=== PATIENT | male | born 1980 | race Hispanic/Latino ===

== ENCOUNTER 2017-10-17 22:03 | Emergency (ER) | payer BC ==
[~2017-10-17] VITALS: Ht 175.3 cm; Wt 108.0 kg
--- OUTSIDE RECORDS SUMMARY | 2017-10-17 22:05 | XMS REPORT ---
Author Author [facility] Address Unknown Phone Unavailable Care Team Providers Care Executive Pilot Name Role Phone YO BUSTILLOS Unavailable Unavailable Problems This patient has no known problems. Allergies, Adverse Reactions, Alerts This patient has no known allergies or adverse reactions. Medications This patient has no known medications. Encounters Start Date/Time End Date/Time Encounter Type Admission Type Attending Clinicians Care Facility Care Department Encounter ID [id number] 20:00:00 2016-11-19 23:59:00 Outpatient [facility] [id number]
== END 2017-10-17 22:38 | disposition home or self-care (01) ==
LOC: FSED 22:03
DX: H66.91 Otitis media, unspecified, right ear (principal)
CPT/HCPCS: 99282

== ENCOUNTER 2022-01-29 13:52 | Emergency (ER) | payer BC ==
[~2022-01-29] VITALS: Ht 170.2 cm; Wt 113.4 kg
[2022-01-29] MEDS ORDERED: KETOROLAC TROMETHAMINE 30 MG/ML VIAL IM ONE (14:30)
[2022-01-29] MEDS ORDERED: ONDANSETRON HCL 4 MG ORAL DISINTEGRATING TAB PO ONE (14:30)
[2022-01-29] MEDS ORDERED: ACETAMINOPHEN 325 MG TAB PO ONE (14:30)
[2022-01-29] MEDS ORDERED: KETOROLAC TROMETHAMINE 30 MG/ML VIAL ONE (14:56)
[2022-01-29] MEDS ORDERED: ACETAMINOPHEN 325 MG TAB ONE (14:56)
[2022-01-29] MEDS ORDERED: ONDANSETRON HCL 4 MG ORAL DISINTEGRATING TAB ONE (14:56)
[2022-01-29] MEDS ORDERED: IBUPROFEN200 MG PO (15:07)
[2022-01-29] MEDS ORDERED: ZANAFLEX4 MG PO (15:07)
== END 2022-01-29 15:39 | disposition home or self-care (01) ==
LOC: FSED 14:40
DX: R10.31 Right lower quadrant pain (principal); M54.50 Low back pain, unspecified; M62.830 Muscle spasm of back; K76.0 Fatty (change of) liver, not elsewhere classified
CPT/HCPCS: 74176; 81003; 99283; J1885; Q0162

== ENCOUNTER 2022-12-29 09:14 | Emergency (ER) | payer BC ==
[~2022-12-29] VITALS: Ht 170.2 cm; Wt 122.5 kg
[~2022-12-29 09:14] MED LIST: IBUPROFEN200 MG PO; ZANAFLEX4 MG PO
[2022-12-29 09:23] VITALS: O2SAT 97
[2022-12-29] MEDS ORDERED: KETOROLAC TROMETHAMINE 60 MG/2 ML VIAL IM ONE (09:45)
[2022-12-29] MEDS ORDERED: KETOROLAC TROMETHAMINE 60 MG/2 ML VIAL ONE (09:49)
[2022-12-29] MEDS ORDERED: METHOCARBAMOL500 MG PO (10:06)
[2022-12-29] MEDS ORDERED: NAPROSYN500 MG PO (10:06)
== END 2022-12-29 10:22 | disposition home or self-care (01) ==
LOC: FSED 09:20
DX: S16.1XXA Strain of muscle, fascia and tendon at neck level, initial encounter (principal); M62.838 Other muscle spasm; R51.9 Headache, unspecified; F17.210 Nicotine dependence, cigarettes, uncomplicated
CPT/HCPCS: 99282; J1885

== ENCOUNTER 2024-08-31 18:23 | Emergency (ER) | payer BC ==
[~2024-08-31] VITALS: Ht 167.6 cm; Wt 121.1 kg
[~2024-08-31 18:23] MED LIST changes: +METHOCARBAMOL500 MG PO; +NAPROSYN500 MG PO
[2024-08-31] MEDS ORDERED: GUAIFEN-CODEINE5 ML PO (18:44)
[2024-08-31] MEDS ORDERED: AZITHROMYCIN250 MG PO (18:44)
[2024-08-31] MEDS ORDERED: DEXAMETHASONE SOD PHOS 10 MG/1 ML VIAL IM ONE (18:45)
[2024-08-31] MEDS ORDERED: VENTOLIN HFA18 GM INH (18:47)
[2024-08-31] MEDS: AZITHROMYCIN 250 MG TAB PO ONE (19:48)
[2024-08-31] MEDS: DEXAMETHASONE SOD PHOS INJ 4 MG/ML SDV IM ONE (19:48)
[2024-08-31] MEDS: ALBUTEROL SULF 0.083% NEB SOLN 3 ML NEB NEB STA (19:49)
[2024-08-31 19:54] VITALS: PULSE 106; RESP 18; TEMP 98.1
[2024-08-31 19:57] VITALS: BP 132/76; PULSE 106; RESP 20; TEMP 98.1; O2SAT 98
== END 2024-08-31 20:00 | disposition home or self-care (01) ==
LOC: FSED 18:30
DX: R05.9 Cough, unspecified (principal); J40 Bronchitis, not specified as acute or chronic; R09.89 Other specified symptoms and signs involving the circulatory and respiratory systems; I10 Essential (primary) hypertension; E11.9 Type 2 diabetes mellitus without complications; Z11.52 Encounter for screening for COVID-19
CPT/HCPCS: 0223U; 71046; 83518; 87400; 99284; J1100